=== PATIENT | female | born 1950 | race Caucasian/White ===

== ENCOUNTER 2022-08-31 22:17 | Emergency (ER) | payer MEDICARE, OTHER ==
[~2022-08-31 22:17] MED LIST: Iopamidol 370 76% 100 ML VIAL ONE
[2022-08-31] MEDS ORDERED: Ondansetron PF 4 MG/2 ML Vial ONE (23:23)
[2022-08-31] MEDS ORDERED: Lactated Ringer's 1,000 ML ONE (23:23)
[2022-08-31 23:28] LABS: Magnesium 1.7 mg/dL (1.6-2.6)
[2022-08-31 23:35] LABS: Band 17 % (5-11); Hemoglobin 17.8 g/dL (12.0-16.0); Lymphocytes 4 % (21-51); MDiff Complete? YES; Mean Corpuscular HGB CONC 31.6 g/dL (32.0-36.0); Mean Corpuscular Hemoglobin 32.5 pg (27.0-31.0); Mean Corpuscular Volume 102.8 fl (78.0-98.0); Mean Platelet Volume 7.9 fL (7.4-10.4); Neutrophil 79 % (42-75); Platelet Count 231 thou/uL (130-400); RBC Distribution Width 11.9 % (11.5-14.5); RBC Morphology Normal; Red Blood Cell (RBC) Count 5.47 mill/uL (4.20-5.40); White Blood Cell (WBC) Count 11.8 thou/uL (4.8-10.8)
[2022-08-31 23:58] LABS: ALT (SGPT) 28 U/L (8-55); AST (SGOT) 35 U/L (5-34); Albumin 4.7 g/dL (3.4-4.8); Alkaline Phosphatase 106 U/L (40-110); Anion Gap 21 mmol/L (10-20); BUN (Urea Nitrogen) 25 mg/dL (9.8-20.1); Bilirubin, Total 0.9 mg/dL (0.2-1.2); CK (CPK) 100 U/L (29-168); Calc. Creatinine Clearance 0 mL/min (70-130); Calcium 9.3 mg/dL (7.8-10.44); Carbon Dioxide 18 mmol/L (23-31); Chloride 107 mmol/L (98-107); Estimated GFR 57; Globulin 2.3 g/dL (2.4-3.5); Glucose 199 mg/dL (80-115); Potassium 3.9 mmol/L (3.5-5.1); Sodium 142 mmol/L (136-145)
[2022-09-01] MEDS ORDERED: Lactated Ringer's 1,000 ML ONE ×4 (00:18→08:10)
[2022-09-01 00:25] LABS: Prothrombin Time 13.6 sec (12.0-14.7)
[2022-09-01 00:26] LABS: PTT 27.7 sec (22.9-36.1)
[2022-09-01 00:56] LABS: Base Excess-Venous -5.2 mmol/L (-2.0 to 3.0); Bicarbonate (HCO3v) 20.8 mmol/L (22.0-28.0); CO2 Tension (PvCO2) 41.1 mmHg (42.0-51.0); Calcium, Ionized 1.02 mmol/L (1.15-1.33); Chloride 111 mmol/L (98-107); Hemoglobin - Calc 17.3 g/dL (12.0-16.0); Potassium 3.7 mmol/L (3.5-5.1); Sodium 145 mmol/L (138-145); vO2 Saturation-calc 55.5 % (60.0-85.0)
[2022-09-01 01:09] LABS: Lipase Greater than 2000 U/L (8-78)
[2022-09-01 03:21] LABS: Lactic Acid 3.4 mmol/L (0.5-2.2)
[2022-09-01 03:23] LABS: Anion Gap 16 mmol/L (10-20); BUN (Urea Nitrogen) 21 mg/dL (9.8-20.1); Calc. Creatinine Clearance 0 mL/min (70-130); Calcium 8.6 mg/dL (7.8-10.44); Carbon Dioxide 21 mmol/L (23-31); Chloride 109 mmol/L (98-107); Estimated GFR 83; Glucose 131 mg/dL (80-115); Potassium 3.7 mmol/L (3.5-5.1); Sodium 142 mmol/L (136-145)
[2022-09-01 04:19] LABS: Bilirubin Negative (Negative); Blood, Urine Trace (Negative); Clarity Clear (Clear); Glucose, Urine (Dipstick) Negative (Negative); Ketone, Urine Negative (Negative); Leukocyte Negative (Negative); Nitrite Negative (Negative); Protein, Urine (Dipstick) Negative (Neg-Trace); Urobilinogen 0.2 mg/dL (Less than 2); pH, Urine 5.5 (5.0-9.0)
[2022-09-01 04:27] LABS: Bacteria/HPF 1+ HPF (None Seen); RBC/HPF 0-3 HPF (0-3); Transitional Epithelial 0-3 HPF (None Seen); WBC/HPF 0-3 HPF (0-3)
[2022-09-01] MEDS ORDERED: Pantoprazole 40 MG VIAL ONE ×2 (04:36→04:50)
[2022-09-01 05:33] LABS: Hemoglobin 14.9 g/dL (12.0-16.0)
[2022-09-01] MEDS ORDERED: metroNIDAZOLE 500 MG/100 ML BAG ONE (07:43)
[2022-09-01] MEDS ORDERED: Ciprofloxacin Lactate/D5W 400 mg/200 ml Premix ONE (08:48)
== END 2022-09-01 08:55 | disposition short-term general hospital (02) ==
LOC: MADERS 22:17
DX: K85.90 Acute pancreatitis without necrosis or infection, unspecified (principal); K57.31 Diverticulosis of large intestine without perforation or abscess with bleeding; E86.0 Dehydration; E87.20 Acidosis, unspecified; I10 Essential (primary) hypertension; Z79.899 Other long term (current) drug therapy
CPT/HCPCS: 71045; 74177; 80048; 80053; 81003; 81015; 82010; 82274; 82330; 82435; 82550; 82803; 83605; 83690; 83735; 84132; 84295; 84484; 85014; 85018; 85025; 85610; 85730; 86850; 86900; 86901; 87040; 93005; 94760; 96361; 96365; 96375; C9113; J0744; J2405; J7120; Q9967

== ENCOUNTER 2024-08-29 12:46 | Emergency (ER) | payer MEDICARE ==
[2024-08-29] MEDS ORDERED: predniSONE 20 MG TAB ONE (13:14)
[2024-08-29] MEDS ORDERED: Ipratropium/Albuterol 3 ML NEB ONE (13:14)
[2024-08-29 13:58] LABS: Hematocrit 50.6 % (36.0-47.0); Hemoglobin 15.8 g/dL (12.0-16.0); Mean Corpuscular HGB CONC 31.2 g/dL (32.0-36.0); Mean Corpuscular Hemoglobin 31.3 pg (27.0-31.0); Mean Corpuscular Volume 100.1 fl (78.0-98.0); Mean Platelet Volume 7.4 fL (7.4-10.4); Platelet Count 311 10x3/uL (130-400); Red Blood Cell (RBC) Count 5.06 mill/uL (4.20-5.40); White Blood Cell (WBC) Count 10.3 10x3/uL (4.8-10.8)
[2024-08-29 13:59] LABS: ALT (SGPT) 23 U/L (8-55); AST (SGOT) 30 U/L (5-34); Albumin 4.5 g/dL (3.4-4.8); Alkaline Phosphatase 130 U/L (40-110); Anion Gap 18 mmol/L (10-20); BUN (Urea Nitrogen) 12 mg/dL (9.8-20.1); Bilirubin, Total 0.8 mg/dL (0.2-1.2); Calc. Creatinine Clearance 0 mL/min (70-130); Calcium 9.6 mg/dL (7.8-10.44); Carbon Dioxide 20 mmol/L (23-31); Chloride 107 mmol/L (98-107); Estimated GFR 81; Globulin 2.8 g/dL (2.4-3.5); Glucose 113 mg/dL (83-110); Protein, Total 7.3 g/dL (5.8-8.1); Sodium 141 mmol/L (136-145)
[2024-08-29 14:00] LABS: Band 2 % (5-11); Eosinophils 4 % (0-10); Lymphocytes 19 % (21-51); MDiff Complete? YES; Macrocytosis SLIGHT = 6-15 cells (100X) (0-5/hpf); Monocytes 4 % (0-10); Neutrophil 67 % (42-75); Troponin I Less than 0.010 ng/mL (< 0.028)
[2024-08-29 14:01] LABS: Manual Diff?? YES; Platelet Adequacy Comment Appears Adequate; Reactive Lymphocytes 4 % (0-10)
[2024-08-29 14:26] LABS: Bilirubin Negative (Negative); Blood, Urine Trace (Negative); Clarity Hazy (Clear); Glucose, Urine (Dipstick) Negative (Negative); Ketone, Urine 15 mg/dL (Negative); Leukocyte Small (Negative); Nitrite Negative (Negative); Protein, Urine (Dipstick) Negative (Neg-Trace); Urobilinogen 0.2 mg/dL (Less than 2)
[2024-08-29 14:33] LABS: Bacteria/HPF Rare-Few HPF (None Seen); CAUTI Indications for Culture Dysuria,urgency,freq; Mucous/LPF Few LPF (<2+); RBC/HPF 0-3 HPF (0-3); Squamous Epithelial 0-3 HPF (0-3); Urine Culture Reflex No No; WBC/HPF 0-3 HPF (0-3)
== END 2024-08-29 14:47 | disposition home or self-care (01) ==
LOC: MADERS 12:46
DX: J20.9 Acute bronchitis, unspecified (principal); H40.9 Unspecified glaucoma; I10 Essential (primary) hypertension; J30.2 Other seasonal allergic rhinitis; Z79.899 Other long term (current) drug therapy
CPT/HCPCS: 71046; 80053; 81001; 83880; 84484; 85025; 93005; J7512; J7620

== ENCOUNTER 2024-09-27 11:05 | Emergency (ER) | payer MEDICARE ==
[2024-09-27] MEDS ORDERED: Ipratropium/Albuterol 3 ML NEB ONE (12:03)
[2024-09-27] MEDS ORDERED: methylPREDNISolone Sod Succ/PF 125 MG/2 ML VIAL ONE (12:03)
[2024-09-27 12:51] LABS: ALT (SGPT) 24 U/L (8-55); AST (SGOT) 26 U/L (5-34); Albumin 4.1 g/dL (3.4-4.8); Alkaline Phosphatase 110 U/L (40-110); Anion Gap 17 mmol/L (10-20); BUN (Urea Nitrogen) 9 mg/dL (9.8-20.1); Bilirubin, Total 0.4 mg/dL (0.2-1.2); Calc. Creatinine Clearance 0 mL/min (70-130); Calcium 9.4 mg/dL (7.8-10.44); Carbon Dioxide 21 mmol/L (23-31); Chloride 109 mmol/L (98-107); Estimated GFR 79; Globulin 3.2 g/dL (2.4-3.5); Glucose 127 mg/dL (83-110); Potassium 3.8 mmol/L (3.5-5.1); Protein, Total 7.3 g/dL (5.8-8.1); Sodium 143 mmol/L (136-145)
[2024-09-27 12:55] LABS: Troponin I Less than 0.010 ng/mL (< 0.028)
[2024-09-27 12:57] LABS: Hemoglobin 15.1 g/dL (12.0-16.0); MDiff Complete? YES; Manual Diff?? YES; Mean Corpuscular HGB CONC 30.8 g/dL (32.0-36.0); Mean Corpuscular Hemoglobin 31.1 pg (27.0-31.0); Neutrophil 56 % (42-75); Platelet Count 326 10x3/uL (130-400); RBC Distribution Width 11.9 % (11.5-14.5); Red Blood Cell (RBC) Count 4.85 mill/uL (4.20-5.40); White Blood Cell (WBC) Count 8.4 10x3/uL (4.8-10.8)
[2024-09-27 12:58] LABS: Band 2 % (5-11); Eosinophils 5 % (0-10); Hypochromia SLIGHT = 6-15 cells (100X) (0-5/hpf); Lymphocytes 22 % (21-51); Macrocytosis SLIGHT = 6-15 cells (100X) (0-5/hpf); Monocytes 5 % (0-10); Platelet Adequacy Comment Appears Adequate; Reactive Lymphocytes 10 % (0-10)
[2024-09-27] MEDS ORDERED: guaiFENesin ER 600 MG TAB ONE (12:58)
[2024-09-27] MEDS ORDERED: Pantoprazole 40 MG VIAL ONE (13:19)
== END 2024-09-27 13:50 | disposition home or self-care (01) ==
LOC: MADERS 11:05
DX: J42 Unspecified chronic bronchitis (principal); I10 Essential (primary) hypertension; Z98.51 Tubal ligation status
CPT/HCPCS: 71046; 80053; 83880; 84484; 85025; 85379; 87070; 87205; 93005; 94640; 94760; 96374; 96375; 99284; J2470; J2919; J7620